=== PATIENT | female | born 1995 | race African-American/Black ===

== ENCOUNTER 2017-05-14 00:55 | Emergency (ER) | payer OTHER, SELFPAY ==
[2017-05-14] MEDS ORDERED: Cephalexin 250 MG/5 ML Oral Suspension ONE (01:50)
[2017-05-14] MEDS ORDERED: Triple Antibiotic Oint 1 GM Packet ONE (01:50)
[2017-05-14] MEDS ORDERED: Cephalexin 500 MG CAP ONE (07:40)
[2017-05-14] MEDS ORDERED: Sulfameth/Trimethoprim DS 800-160mg TAB ONE (07:40)
== END 2017-05-14 02:05 | disposition home or self-care (01) ==
LOC: MADERS 00:55
DX: S20.161A Insect bite (nonvenomous) of breast, right breast, initial encounter (principal); L08.9 Local infection of the skin and subcutaneous tissue, unspecified; J45.909 Unspecified asthma, uncomplicated; W57.XXXA Bitten or stung by nonvenomous insect and other nonvenomous arthropods, initial encounter
CPT/HCPCS: 99281

== ENCOUNTER 2020-05-02 23:36 | Emergency (ER) | payer SELFPAY | END 2020-05-03 00:21 | disposition home or self-care (01) | LOC: MADERS 05-03 00:09 | DX: S69.92XA Unspecified injury of left wrist, hand and finger(s), initial encounter (principal); J45.909 Unspecified asthma, uncomplicated; X58.XXXA Exposure to other specified factors, initial encounter | CPT/HCPCS: 99283 ==

== ENCOUNTER 2020-06-24 22:26 | Emergency (ER) | payer SELFPAY ==
[2020-06-24] MEDS ORDERED: Ibuprofen 800 MG TAB ONE (23:29)
== END 2020-06-24 23:35 | disposition home or self-care (01) ==
LOC: MADERS 22:26
DX: K02.9 Dental caries, unspecified (principal); K08.89 Other specified disorders of teeth and supporting structures; J45.909 Unspecified asthma, uncomplicated
CPT/HCPCS: 99283

== ENCOUNTER 2020-09-03 20:08 | Emergency (ER) | payer SELFPAY ==
[2020-09-03 21:55] LABS: Pregnancy Test - Urine (BHCG) Negative (Negative); Pregu Control Background? CLEAR/WHITE (CLR/WHITE); Pregu Control Bar Appear? YES (CONTROL BAR); Specific Gravity 1.025 (1.002-1.036)
[2020-09-03 22:14] LABS: Amphetamine Not Detected (NotDetected); Barbiturates Screen Not Detected (NotDetected); Benzodiazepine Screen Not Detected (NotDetected); Cocaine Metabolite Screen Not Detected (NotDetected); Medtox Control Line Valid? VALID (VALID); Methadone Not Detected (NotDetected); Methamphetamine Not Detected (NotDetected); Opiate Screen Not Detected (NotDetected); Oxycodone Screen Not Detected (NotDetected); Phencyclidine (PCP) Not Detected (NotDetected); THC/Cannabinoid Screen Not Detected (NotDetected); Tricyclic Screen Not Detected (NotDetected)
[2020-09-03 22:19] LABS: Hemoglobin 10.5 g/dL (12.0-16.0); Mean Corpuscular HGB CONC 29.5 g/dL (32.0-36.0); Mean Corpuscular Hemoglobin 20.8 pg (27.0-31.0); Mean Corpuscular Volume 70.5 fL (78.0-98.0); Mean Platelet Volume 7.3 fL (7.4-10.4); Platelet Count 424 thou/uL (130-400); RBC Distribution Width 16.9 % (11.5-14.5); Red Blood Cell (RBC) Count 5.06 mill/uL (4.20-5.40); White Blood Cell (WBC) Count 7.1 thou/uL (4.8-10.8)
[2020-09-03 22:29] LABS: Anion Gap 15 mmol/L (10-20); BUN (Urea Nitrogen) 9 mg/dL (7.0-18.7); Calc. Creatinine Clearance 0 mL/min (70-130); Carbon Dioxide 26 mmol/L (22-29); Chloride 104 mmol/L (98-107); Estimated GFR-MDRD Greater than 90; Glucose 120 mg/dL (70-105); Potassium 3.2 mmol/L (3.5-5.1); Sodium 142 mmol/L (136-145)
[2020-09-03 22:35] LABS: #Basophils 0.1 thou/uL (0.0-0.2); #Eosinphils 0.2 thou/uL (0.0-0.7); #Lymphocytes 1.4 thou/uL (1.20-3.40); #Monocytes 0.5 thou/uL (0.11-0.59); #Neutrophils 4.9 thou/uL (1.40-6.50); %Eosinophils 2.7 % (0.0-10.0); %Lymphocytes 19.9 % (21.0-51.0); %Monocytes 7.5 % (0.0-10.0); %Neutrophils 68.9 % (42.0-75.0); Hypochromia SLIGHT = 6-15 cells (100X) (0-5/hpf); MDiff Complete? YES; Microcytosis SLIGHT = 6-15 cells (100X) (0-5/hpf)
[2020-09-03] MEDS ORDERED: Potassium Chloride 20 MEQ TAB ONE (22:42)
== END 2020-09-03 23:06 | disposition home or self-care (01) ==
LOC: MADERS 20:08
DX: B34.9 Viral infection, unspecified (principal); D64.9 Anemia, unspecified; E87.6 Hypokalemia; J45.909 Unspecified asthma, uncomplicated
CPT/HCPCS: 80048; 80306; 81025; 84443; 85025; 87081; 87430; 87804; 99283